=== PATIENT | female | born 2005 | race Caucasian/White ===

== ENCOUNTER → 2025-03-14 | Outpatient (CLI) | payer OTHER ==
[~2025-03-14] MED LIST: ACET325UDC; ALBU2SYA PO; ALBU90OI INH; AMOX50SU PO; Augmentin250 MG/5 M PO; IBUP100S PO; PENI125S5 PO; RXCODACESY PO
[2025-03-17 14:33] LABS: C. TRACHOMATIS BY TMA,THINPREP Negative (Negative); N. GONORRHOEAE BY TMA,THINPREP Negative (Negative)
== END ==
LOC: LAB SHORT 17:01 → LAB 17:01
DX: Z01.419 Encounter for gynecological examination (general) (routine) without abnormal findings (principal)
CPT/HCPCS: 87491; 87591; G0145